=== PATIENT | female | born 1980 | race Two or more races ===

== ENCOUNTER 2020-02-14 14:14 | Emergency (ER) | payer OTHER ==
[~2020-02-14] VITALS: Ht 167.6 cm; Wt 77.1 kg
[2020-02-14 14:38] VITALS: BP 135/66
== END 2020-02-14 16:30 | disposition home or self-care (01) ==
LOC: ER 14:14
DX: R51.9 Headache, unspecified (principal); M79.10 Myalgia, unspecified site; Z20.828 Contact with and (suspected) exposure to other viral communicable diseases
CPT/HCPCS: 36415; 71045; 87426

== ENCOUNTER 2020-04-10 10:40 | Emergency (ER) | payer OTHER ==
[~2020-04-10] VITALS: Ht 167.6 cm; Wt 79.4 kg
[2020-04-10 14:12] VITALS: BP 153/88
== END 2020-04-10 14:40 | disposition home or self-care (01) ==
LOC: ER 10:40
DX: U07.1 COVID-19 (principal); R51.9 Headache, unspecified
CPT/HCPCS: 36415; 71045; 87426

== ENCOUNTER 2020-04-13 14:04 | Emergency (ER) | payer OTHER ==
[~2020-04-13] VITALS: Ht 167.6 cm; Wt 79.4 kg
[2020-04-13 14:17] VITALS: BP 142/98
[2020-04-13] MEDS ORDERED: traMADol HCL 50 MG TAB PO ONE (15:30)
== END 2020-04-13 17:54 | disposition home or self-care (01) ==
LOC: ER 14:04
DX: U07.1 COVID-19 (principal)

== ENCOUNTER 2020-04-20 18:25 | Emergency (ER) | payer OTHER ==
[~2020-04-20] VITALS: Ht 167.6 cm; Wt 81.6 kg
[2020-04-20 21:11] VITALS: BP 149/97
== END 2020-04-20 22:45 | disposition home or self-care (01) ==
LOC: ER 18:25
DX: F41.9 Anxiety disorder, unspecified (principal); Z98.51 Tubal ligation status
CPT/HCPCS: 71045

== ENCOUNTER 2020-08-12 23:47 | Emergency (ER) | payer OTHER ==
[~2020-08-12] VITALS: Ht 167.6 cm; Wt 86.2 kg
[2020-08-12 23:49] VITALS: BP 126/85
[2020-08-13 02:10] LABS: Urine Bacteria NONE SEEN /hpf (None Seen); Urine Blood TRACE /uL (Negative); Urine Mucus FEW (None Seen); Urine WBC 2 /hpf (0 - 5)
== END 2020-08-13 03:43 | disposition left against medical advice (07) ==
LOC: ER 23:47
DX: R35.0 Frequency of micturition (principal); Z53.21 Procedure and treatment not carried out due to patient leaving prior to being seen by health care provider
CPT/HCPCS: 81001; 81025

== ENCOUNTER 2020-11-13 18:13 | Emergency (ER) | payer OTHER ==
[~2020-11-13] VITALS: Ht 170.2 cm; Wt 74.8 kg
[2020-11-13 18:31] VITALS: BP 123/78
[2020-11-13] MEDS ORDERED: IBUPROFEN 800 MG TAB PO ONE (20:45)
[2020-11-13] MEDS ORDERED: ACETAMINOPHEN 500 MG TAB PO ONE (20:45)
[2020-11-13] MEDS ORDERED: LIDOCAINE VISCOUS 2% 15ML UD PO ONE (22:00)
[2020-11-13] MEDS ORDERED: traMADol HCL 50 MG TAB PO ONE (22:00)
== END 2020-11-13 22:11 | disposition home or self-care (01) ==
LOC: ER 18:14
DX: S02.5XXA Fracture of tooth (traumatic), initial encounter for closed fracture (principal); Z98.51 Tubal ligation status; Z98.890 Other specified postprocedural states; X58.XXXA Exposure to other specified factors, initial encounter; Y93.89 Activity, other specified; Y92.89 Other specified places as the place of occurrence of the external cause; Y99.8 Other external cause status

== ENCOUNTER 2021-01-02 17:45 | Emergency (ER) | payer OTHER ==
[~2021-01-02] VITALS: Ht 167.6 cm; Wt 77.1 kg
[2021-01-02 17:46] VITALS: BP 119/77
== END 2021-01-02 21:16 | disposition home or self-care (01) ==
LOC: ER 17:45
DX: J02.0 Streptococcal pharyngitis (principal); J02.9 Acute pharyngitis, unspecified; R68.83 Chills (without fever); M79.18 Myalgia, other site; R51.9 Headache, unspecified; R53.83 Other fatigue; Z98.890 Other specified postprocedural states; Z98.51 Tubal ligation status; Z20.822 Contact with and (suspected) exposure to COVID-19
CPT/HCPCS: 36415; 87426

== ENCOUNTER 2021-01-21 11:37 | Emergency (ER) | payer OTHER ==
[~2021-01-21] VITALS: Ht 167.6 cm; Wt 77.1 kg
[2021-01-21 12:55] VITALS: BP 147/104
[2021-01-21] MEDS ORDERED: KETOROLAC TROMETH 60MG/2ML VIAL IM ONE (13:15)
== END 2021-01-21 17:34 | disposition home or self-care (01) ==
LOC: ER 11:37
DX: S39.012A Strain of muscle, fascia and tendon of lower back, initial encounter (principal); S60.221A Contusion of right hand, initial encounter; W18.39XA Other fall on same level, initial encounter; Y93.89 Activity, other specified; Y92.89 Other specified places as the place of occurrence of the external cause; Y99.8 Other external cause status
CPT/HCPCS: 73130; 96372; 99283; J1885

== ENCOUNTER 2021-07-05 20:06 | Emergency (ER) | payer OTHER ==
[~2021-07-05] VITALS: Ht 167.6 cm; Wt 78.0 kg
[2021-07-05 20:06] VITALS: BP 122/66
[2021-07-06] MEDS ORDERED: ACETAMINOPHEN 500 MG TAB PO ONE (00:15)
== END 2021-07-06 01:12 | disposition left against medical advice (07) ==
LOC: ER 20:06
DX: K08.89 Other specified disorders of teeth and supporting structures (principal); Z53.21 Procedure and treatment not carried out due to patient leaving prior to being seen by health care provider

== ENCOUNTER 2024-09-15 23:15 | Emergency (ER) | payer OTHER ==
[~2024-09-15] VITALS: Ht 167.6 cm; Wt 82.5 kg
[2024-09-15 23:38] VITALS: BP 127/87; TEMP 96.8
[2024-09-15 23:42] VITALS: PULSE 57
--- NOTE | 2024-09-15 23:56 | ED.PDOC ---
SOB-HPI HPI Comments HPI: Poor Historian. 43-year-old female presents to emergency department for evaluation of three day history of shortness of breath. She went to urgent care two days ago where she was given an inhaler after chest x-ray. Patient continues to have shortness of breath and now is developing some midsternal chest burning sensation. She feels that her shortness of breath is not improving even with the inhaler treatment. Denies any other acute symptoms. Past Medical History: Weldon's palsy, back pain, Past Surgical History: Gastric sleeve, , hysterectomy: REVIEW OF SYSTEMS: CONSTITUTIONAL: Denies acute: fever, diaphoresis, chills, generalized weakness. HEAD: Denies acute: headache, photophobia Eyes: Denies acute: Double vision, vision loss, eye pain, eye discharge. EARS: Denies acute: tinnitus, hearing loss, ear discharge, ear pain, THROAT: Denies acute: sore throat, swelling, difficulty swallowing , pain with swallowing, change in voice. NECK: Denies acute: neck pain, neck swelling, stiff neck. HEART: Denies acute : palpitations, LUNGS: Denies acute: wheezing, cough, hemoptysis ABDOMEN: Denies acute: abdominal pain, Nausea, Vomiting, diarrhea, melena , hematemesis, hematochezia SKIN: Denies acute: rash, redness, lesions, itchiness. EXTREMITIES: Denies acute: calf pain, numbness, tingling, weakness, denies pain in extremity. Denies acute: Low back pain. Neuro: Denies acute: focal neurological deficit, motor or sensory focal neurological deficit, tremors, seizure like activity, confusion, dizziness, change in mental status, loss of bowel or bladder function, cauda equina like symptoms. : Denies acute: dysuria, hematuria, flank pain, increase in urinary frequency. PSYCH: Denies acute: hallucination, suicidal ideation, homicidal ideation. FEMALE: Denies acute: abnormal vaginal bleeding, foul odor, unusual discharge. PHYSICAL EXAM: General: ---mild-----acute distress, awake and alert. Head: normocephalic, atraumatic. Neck: supple, trachea is midline, no swelling. Throat: Normal phonation. Eyes:, no erythema, no purulent discharge, no proptosis, no icterus. Heart: regular rate, regular rhythm, no significant murmur appreciated. Lungs: no apparent respiratory distress, Able to speak in full sentences. No wheezing, no rhonchi, no crackles. No stridors Clear to auscultation bilaterally. Abdomen: non tender to palpation, non distended, soft, no guarding, no rebound, + bowel sounds. Neuro: Awake, Alert, oriented to name, self, situation, follows commands GCS=15. Speech is normal. Skin: no petechia, no purpura, no cyanosis, non-pale, not jaundice. Lower extremities: --no - Pitting edema no deformity, no focal swelling, no calf TTP. Makes eye contact. moves all four extremities. Face: no apparent facial droop. Ambulating in the ED independently. 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 Was a procedure done?: No Differential Dx Differential Diagnosis: Other (DDx include ACS, unstable angina, anxiety, PE, pneumothroax, neoplasm, cardiac ischemia, COPD, asthma, CHF, pleural effusion, tobacco abuse, pneumonia, hypoxia, hypercapnia, anemia., infection/sepsis., pulmonary edema. Asthma, Cardiac tamponade, infection.) X-Ray, Labs, Meds, VS Vital Signs Date Time Temp Pulse Resp B/P (MAP) Pulse Ox O2 Delivery O2 Flow Rate FiO2 09/16/24 01:49 20 97 Room Air* 0 21 21 09/15/24 23:42 57 09/15/24 23:38 96.8 70 16 127/87 (100) 99 96.8 Lab Test 09/16/24 01:02 09/16/24 00:11 Range/Units Troponin I High Sensitivity 4 4 </=34 ng/L White Blood Count 5.1 4.4-10.8 10^3/uL Red Blood Count 4.22 4.0-5.20 10^6/uL Hemoglobin 13.6 12.2-16.2 g/dL Hematocrit 40.4 36.0-46.0 % Mean Corpuscular Volume 95.9 80.0-100.0 fL Mean Corpuscular Hemoglobin 32.2 H 28.0-32.0 pg Mean Corpuscular Hemoglobin Concent 33.6 32.0-36.0 g/dL Red Cell Distribution Width 13.6 11.8-14.3 % Platelet Count 196 140-450 10^3/uL Mean Platelet Volume 8.8 6.9-10.8 fL Neutrophils (%) (Auto) 59.0 37.0-80.0 % Lymphocytes (%) (Auto) 31.6 10.0-50.0 % Monocytes (%) (Auto) 7.4 0.0-12.0 % Eosinophils (%) (Auto) 1.3 0.0-7.0 % Basophils (%) (Auto) 0.7 0.0-2.0 % Neutrophils # (Auto) 3.0 1.6-8.6 10 ^3/uL Lymphocytes # (Auto) 1.6 0.4-5.4 10 ^3/uL Monocytes # (Auto) 0.4 0-1.3 10 ^3/uL Eosinophils # (Auto) 0.1 0-0.8 10 ^3/uL Basophils # (Auto) 0 0-0.2 10 ^3/uL Nucleated Red Blood Cells 0.1 % D-Dimer, Quantitative 0.38 0.0-0.49 mg/L FEU Sodium Level 140 136-145 mmol/L Potassium Level 3.8 3.5-5.1 mmol/L Chloride Level 107 98-107 mmol/L Carbon Dioxide Level 24 20-31 mmol/L Anion Gap 9 5-15 Blood Urea Nitrogen 9 9-23 mg/dL Creatinine 0.73 0.550-1.02 mg/dL Glomerular Filtration Rate Calc 106 >90 mL/min BUN/Creatinine Ratio 12.3 10.0-20.0 Serum Glucose 88 74-106 mg/dL Lactic Acid Level 1.6 0.4-2.0 mmol/L Calcium Level 9.0 8.7-10.4 mg/dL Total Bilirubin 0.5 0.2-1.0 mg/dL Aspartate Amino Transferase (AST) 15 13-40 U/L Alanine Aminotransferase (ALT) 17 7-40 U/L Alkaline Phosphatase 106 46-116 U/L B-Type Natriuretic Peptide 13.21 0-100 pg/mL Total Protein 7.5 5.7-8.2 g/dL Albumin 4.3 3.2-4.8 g/dL Current Medications Medications (Trade) Dose Ordered Sig/Nayan Route Start Time Stop Time Status Last Admin Albuterol (Ventolin Medneb) 2.5 mg ONCE ONCE NEB 09/16/24 01:00 09/16/24 01:06 DC 09/16/24 01:44 Ipratropium Inchelium (Atrovent Medneb) 1 mg ONCE ONCE NEB 09/16/24 01:00 09/16/24 01:06 DC 09/16/24 01:44 [place] [id number] Ph: [phone] DIAGNOSTIC IMAGING Diagnostic Imaging Report : [id number] Signed PATIENT: JORGE L HERNANDEZ ACCT: [id number] UNIT: [id number] : 1980 LOC: ER ROOM / BED: / AGE / SEX: 43 / F ADM STATUS: REG ER SERVICE [id number] ORDERING PHYSICIAN: JASMIN REAL DO PROCEDURE(s): CXRP - CHEST PORTABLE REASON: cp/sob ORDER NUMBER(s): [id number], ACCESSION NUMBER(s): [id number] CHEST RADIOGRAPH Indication: cp/sob Technique: Single frontal view of the chest was obtained COMPARISON: CHEST XRAY 1 VIEW on DOS: 04/10/20 FINDINGS: Lines and Tubes: None Lungs: Clear Pleura: No effusion. No pneumothorax. Cardiomediastinal contours: Unremarkable IMPRESSION: No abnormality demonstrated. ATED BY: JULIAN LOPEZ MD DICTATED DATE/TIME: 09/16/2436 SIGNED BY: JULIAN LOPEZ MD SIGNED DATE/TIME: 09/16/2436 CC: Time of 1ST Reevaluation: 02:58 Reevaluation 1ST: Improved Patient Education/Counseling: Diagnosis, Treatment Family Education/Counseling: No Family Present Comments Patient presented with the above HPI.-dyspnea----workup was initiated. patient was found with the above mentioned diagnosis. the following medications were ordered: please refer to order lists of meds and tests obtained by myself Dr. Real. Patient ED course and VS have been stabilized. Patient has been reassessed in the ED and remained in a stable condition. Pertinent incidental findings were discussed with the patient and/or family. Patient/family voices understanding and is agreeable with plan. Patient has been observed in the ED adequate length of time to insure improvement/stability. Escalation of care considered: Consideration of escalation to observation or admission Patient was DISCHARGED home in a stable condition. All the reports of any imaging studies that were ordered by myself were reviewed by myself. Departure 1 Departure Time of Disposition: 01:18 Impression: Primary Impression: Shortness of breath Disposition: HOME / SELF CARE / HOMELESS Condition: Stable Additional Instructions: Additional instructions: You MUST follow-up with your primary care/family doctor in 1 to 2 days. If you are unable to see your primary care/family doctor, please return to our emergency room for re-assessment and re-evaluation in 1 to 2 days. Return to the emergency room here in our facility or to the nearest ER [facility] if your symptoms change or worsen. CONSULTATIONS: you MUST Follow-up for consultation as soon as possible with: cardiology and pulmonology in 1-2 days. Please call for appointment. You MUST call the consultants office yourself to make an appointment. You may need to arrange that through your insurance and/or your primary/family doctor. If you are unable to see the licensed tax consultant in 1 to 2 days, you must return to our emergency room (or any other ER of your choice) for re-assessment and re- evaluation. Adequate fluid hydration. e-Prescriptions Prednisone (Prednisone) 20 Mg Tab 40 MG PO DAILY for 5 Days, #10 TAB Prov: JASMIN REAL DO 09/16/24 Discharged With: Self Critical Care Note Critical Care Time?: No Heart Score Heart Score: Heart Score Response (Comments) Value History Slightly Suspicious 0 EKG Normal 0 Age <45 0 Risk Factors No known risk factors 0 Troponin Normal limit 0 Total 0 JASMIN REAL DO September 15, 2024 23:56
[2024-09-16 00:24] LABS: Basophils # (auto) 0 10 ^3/uL (0-0.2); Basophils % (auto) 0.7 % (0.0-2.0); Eosinophils # (auto) 0.1 10 ^3/uL (0-0.8); Eosinophils % (auto) 1.3 % (0.0-7.0); Hematocrit 40.4 % (36.0-46.0); Hemoglobin 13.6 g/dL (12.2-16.2); Lymphocytes # (auto) 1.6 10 ^3/uL (0.4-5.4); Lymphocytes % (auto) 31.6 % (10.0-50.0); Mean Corpuscular Hemoglobin 32.2 pg (28.0-32.0); Mean Corpuscular Hgb Conc. 33.6 g/dL (32.0-36.0); Mean Corpuscular Volume 95.9 fL (80.0-100.0); Monocytes # (auto) 0.4 10 ^3/uL (0-1.3); Monocytes % (auto) 7.4 % (0.0-12.0); Nucleated Red Blood Cells % 0.1 %; Platelet Count (auto) 196 10^3/uL (140-450); Red Blood Cells 4.22 10^6/uL (4.0-5.20); Red Cell Distribution Width 13.6 % (11.8-14.3); White Blood Cell 5.1 10^3/uL (4.4-10.8)
--- NOTE | 2024-09-16 00:40 | DVH ---
CHEST RADIOGRAPH Indication: cp/sob Technique: Single frontal view of the chest was obtained COMPARISON: CHEST XRAY 1 VIEW on DOS: 04/10/20 FINDINGS: Lines and Tubes: None Lungs: Clear Pleura: No effusion. No pneumothorax. Cardiomediastinal contours: Unremarkable IMPRESSION: No abnormality demonstrated.
[2024-09-16 00:41] LABS: Alanine Aminotransferase 17 U/L (7-40); Albumin 4.3 g/dL (3.2-4.8); Alkaline Phosphatase 106 U/L (46-116); Anion Gap 9 (5-15); Aspartate Aminotransferase 15 U/L (13-40); BUN/Creatinine Ratio 12.3 (10.0-20.0); Bilirubin, Total 0.5 mg/dL (0.2-1.0); Carbon Dioxide 24 mmol/L (20-31); Glucose 88 mg/dL (74-106); Potassium 3.8 mmol/L (3.5-5.1); Sodium 140 mmol/L (136-145); Total Protein 7.5 g/dL (5.7-8.2)
[2024-09-16 00:43] LABS: Blood Urea Nitrogen 9 mg/dL (9-23); Chloride 107 mmol/L (98-107)
[2024-09-16] MEDS: ALBUTEROL SULF 2.5 MG/0.5ML(0.5%) NEB SOLN ONE (01:02)
[2024-09-16] MEDS: IPRATROPIUM BROM 0.5 MG/2.5ML INH SOL ONE (01:02)
[2024-09-16] MEDS ORDERED: PRED20TA2 PO (01:23)
[2024-09-16] MEDS: ALBUTEROL SULF 2.5 MG/0.5ML(0.5%) NEB SOLN NEB ONE (01:44)
[2024-09-16] MEDS: IPRATROPIUM BROM 0.5 MG/2.5ML INH SOL NEB ONE (01:44)
[2024-09-16 01:49] VITALS: RESP 20; O2SAT 97
[2024-09-16] MEDS: methylPREDNISolone SOD SUCC 125 MG/2 ML VL IV ONE (03:34)
--- NOTE | 2024-09-16 10:31 | ECG ---
[facility] Test Date: 2024-09-15 Test Time: 23:42:28 Pat Name: JORGE L HERNANDEZ Department: ER Room: Gender: F Artist'S Manager: JUAN : 1980 Requested By: JASMIN REAL Order Number: [id number] Reading MD: Measurements Intervals Nancy Rate: 57 P: 64 MI: 162 QRS: 35 QRSD: 100 T: 35 QT: 427 QTc: 416 Interpretive Statements Sinus rhythm Probable left atrial enlargement Please click the below link to view image of tracing.
== END 2024-09-16 03:36 | disposition home or self-care (01) ==
LOC: ER 23:15
DX: R06.02 Shortness of breath (principal); R07.89 Other chest pain; Z98.890 Other specified postprocedural states; Z98.51 Tubal ligation status; Z90.710 Acquired absence of both cervix and uterus
CPT/HCPCS: 36415; 71045; 80053; 83605; 83880; 84484; 85025; 85379; 93005; 94640